=== PATIENT | female | born 1955 | race Caucasian/White ===

== ENCOUNTER 2020-11-04 06:03 | Day surgery (SDC) | payer MEDICARE, OTHER ==
[~2020-11-04] VITALS: Ht 157.5 cm; Wt 68.2 kg
[2020-11-04] MEDS ORDERED: SODIUM CHLORIDE 0.9% 1,000 ML IV ONE (06:30)
[2020-11-04 06:44] LABS: COVID AG,FIA SOURCE NASOPHARYNGEAL
[2020-11-04] MEDS ORDERED: SODIUM CHLORIDE 0.9% 1,000 ML ONE (07:16)
[2020-11-04] MEDS ORDERED: FentaNYL CITRATE PF 100 MCG/2 ML VIAL ONE (07:31)
[2020-11-04] MEDS ORDERED: MIDAZOLAM HCL 5 MG/ML VIAL ONE (07:32)
[2020-11-04] MEDS ORDERED: MethylPREDNISolone SOD SUCC 125 MG/2 ML VIAL IVP ONE (08:45)
[2020-11-04] MEDS ORDERED: MethylPREDNISolone SOD SUCC 125 MG/2 ML VIAL ONE (09:55)
[2020-11-04] MEDS ORDERED: BENZOCAINE 20% 50 MCG/SPRAY 57 GM ONE (17:48)
[2020-11-04] MEDS ORDERED: LIDOCAINE 2% 30 ML JELLY ONE (17:48)
[2020-11-04] MEDS ORDERED: ALBUTEROL SULFATE 2.5 MG/0.5 ML NEB SOLUTION NEB ONE (17:48)
[2020-11-04] MEDS ORDERED: OXYGEN THERAPY IH SCH (20:00)
== END 2020-11-04 10:30 | disposition home or self-care (01) ==
LOC: SURGERY 06:03
PROVIDERS: ATTEND Internal Medicine Critical Care Medicine
DX: J38.4 Edema of larynx (principal); B37.0 Candidal stomatitis; J45.909 Unspecified asthma, uncomplicated; Z79.899 Other long term (current) drug therapy
CPT/HCPCS: 31623; 31624; 71045; 87015; 87070; 87101; 87205; 87206; 87220; 87426; 88108; 88184; 88185; 88312; C9803; J2250; J2930; J3010; J7030; J7613

== ENCOUNTER 2023-01-27 06:31 | Day surgery (SDC) | payer OTHER ==
[~2023-01-27] VITALS: Ht 157.5 cm; Wt 68.1 kg
[2023-01-27] MEDS ORDERED: SODIUM CHLORIDE 0.9% 1,000 ML IV ONE (07:00)
[2023-01-27] MEDS ORDERED: LISI-893 PO (07:30)
[2023-01-27] MEDS ORDERED: ASPI-1450 PO (07:31)
[2023-01-27] MEDS ORDERED: FLUO20CA36 PO (07:32)
[2023-01-27] MEDS ORDERED: MethylPREDNISolone SOD SUCC 125 MG/2 ML VIAL ONE (09:09)
[2023-01-27 09:30] VITALS: PULSE 59; RESP 16; O2SAT 99
[2023-01-27] MEDS ORDERED: MethylPREDNISolone SOD SUCC 125 MG/2 ML VIAL IVP ONE (09:45)
[2023-01-27] MEDS ORDERED: GABA600T10 PO (12:56)
[2023-01-27] MEDS ORDERED: SIMV10TA97 PO (12:56)
[2023-01-27] MEDS ORDERED: ALBU18HF12 IH (12:56)
[2023-01-27] MEDS ORDERED: CHOL500013 PO (12:56)
[2023-01-27] MEDS ORDERED: BUDE10.2 IH (12:56)
[2023-01-27] MEDS ORDERED: LEVO50TA11 PO (12:56)
[2023-01-27] MEDS ORDERED: ASPI-1444 PO (12:56)
[2023-01-27] MEDS ORDERED: MONT-40 PO (12:56)
[2023-01-27] MEDS ORDERED: BACL20TA PO (12:56)
[2023-01-27] MEDS ORDERED: TRAZ300T2 PO (12:56)
[2023-01-27] MEDS ORDERED: NYST100033 PO (12:56)
== END 2023-01-27 11:30 | disposition home or self-care (01) ==
LOC: SURGERY 06:31
PROVIDERS: ATTEND Internal Medicine Critical Care Medicine
DX: J38.4 Edema of larynx (principal); B37.0 Candidal stomatitis; J44.9 Chronic obstructive pulmonary disease, unspecified; Z79.82 Long term (current) use of aspirin; Z79.899 Other long term (current) drug therapy
CPT/HCPCS: 31623; 88112; 87206; 87101; 87220; 87070; 88305; 31624; 94640; 71045; 87015; J2930

== ENCOUNTER 2025-02-19 06:30 | Day surgery (SDC) | payer OTHER ==
[~2025-02-19 06:30] MED LIST: ALBU18HF12 IH; ASPI-1444 PO; BACL20TA PO; BUDE10.2 IH; CHOL500013 PO; FLUO-418 PO; GABA-1404 PO; LEVO50TA11 PO; LISI-893 PO; MONT-40 PO; NYST100033 PO; SIMV10TA97 PO; TRAZ300T2 PO
[2025-02-19] MEDS ORDERED: SODIUM CHLORIDE 0.9% 1,000 ML ONE ×2 (07:01→07:51)
[2025-02-19] MEDS ORDERED: MIDAZOLAM HCL 2 MG/2 ML VIAL ONE (07:28)
[2025-02-19] MEDS ORDERED: FentaNYL CITRATE PF 100 MCG/2 ML VIAL ONE (07:28)
[2025-02-19] MEDS: SODIUM CHLORIDE 0.9% 1,000 ML IV ONE (07:52)
[2025-02-19 09:20] VITALS: PULSE 70; RESP 20; O2SAT 94
[2025-02-19] MEDS ORDERED: ALBUTEROL SULFATE 2.5 MG/0.5 ML NEB SOLUTION NEB ONE (12:00)
[2025-02-19] MEDS ORDERED: BENZOCAINE 20% 50 MCG/SPRAY 57 GM ONE (12:00)
[2025-02-19] MEDS ORDERED: LIDOCAINE 2% 11 ML JELLY ONE (12:00)
[2025-02-19] MEDS ORDERED: LIDOCAINE 4% 50 ML SOLUTION ONE (12:00)
== END 2025-02-19 12:20 | disposition left against medical advice (07) ==
LOC: SDS 06:30
PROVIDERS: ATTEND Internal Medicine Critical Care Medicine
DX: R05.3 Chronic cough (principal); R04.2 Hemoptysis; R06.1 Stridor; R91.8 Other nonspecific abnormal finding of lung field; E78.00 Pure hypercholesterolemia, unspecified; J44.9 Chronic obstructive pulmonary disease, unspecified; Z79.899 Other long term (current) drug therapy; Z90.49 Acquired absence of other specified parts of digestive tract; Z98.51 Tubal ligation status; Z98.890 Other specified postprocedural states
CPT/HCPCS: 31623; 87206; 87101; 87220; 87070; 87186; 31624; 94760; 71045; 87015; J3010; J2250; J2919; J7030; 88108; J7613; Z7610